=== PATIENT | female | born 1930 | race Caucasian/White ===

== ENCOUNTER → 2017-10-20 | Outpatient (CLI) | payer OTHER ==
[~2017-10-20] MED LIST: ALDACTONE25 MG PO; COUMADIN 5 MG TA5 M1 PO; LANOXIN 0.120.125 M1 PO; LASIX 20 MG TAB20 MG PO; LEVOTHYROXINE50 MCG PO; LIPITOR 20 MG T20 M1 PO; METOPROLOL SUC100 MG PO; NIFEREX PO; POTASSIUM20 PO; TOPROL XL50 MG PO; TRACLEER125 MG PO; VITAMIN D2000 UNI1 PO
== END ==
LOC: RAD 09:11
DX: I51.7 Cardiomegaly (principal); R09.89 Other specified symptoms and signs involving the circulatory and respiratory systems; K57.31 Diverticulosis of large intestine without perforation or abscess with bleeding; I50.32 Chronic diastolic (congestive) heart failure; I12.9 Hypertensive chronic kidney disease with stage 1 through stage 4 chronic kidney disease, or unspecified chronic kidney disease; N18.3 Chronic kidney disease, stage 3 (moderate); I48.91 Unspecified atrial fibrillation; I27.89 Other specified pulmonary heart diseases; E78.5 Hyperlipidemia, unspecified; E03.9 Hypothyroidism, unspecified; I25.10 Atherosclerotic heart disease of native coronary artery without angina pectoris

== ENCOUNTER → 2017-11-08 | Outpatient (CLI) | payer OTHER | LOC: RAD 09:23 | DX: I50.9 Heart failure, unspecified (principal); I51.7 Cardiomegaly; J81.1 Chronic pulmonary edema ==

== ENCOUNTER 2019-03-29 12:50 | Inpatient (IN) | payer OTHER ==
[~2019-03-29] VITALS: Ht 180.3 cm; Wt 78.9 kg
[2019-03-29 16:25] VITALS: BP 123/54
--- NOTE | 2019-03-29 16:35 | 2DMMODE ---
[facility] [address] [place] [address] 2 D/M-MODE ECHOCARDIOGRAM Name: DANN SQUIRES INDIGO Room #: 206-P ADM IN M.R.#: [id number] ������������� Admission: 03/29/19 ������������� Attend Phys: Marilyn Joiner Discharge: ��� ������������� ��� Date of : 34 Date of Service: 03/29/19 1635 �� Report #: [id number] �������� ��������������������������������������������[id number] THIS REPORT FOR: //name// APPROVED REPORT Study performed: 03/29/2019 15:44:28 EXAM: Comprehensive 2D, Doppler, and color-flow Echocardiogram Patient Location: Echo lab Room #: 206 Status: routine/late add-on BSA: 1.88 HR: 122 bpm Rhythm: Atrial Fibrillation Other Information Study Quality: Adequate Indications ASD, Pulmonary HTN. Hx: Afib, CAD. 2D Dimensions RVDd: 62.64 mm IVSd: 10.28 (7-11mm) LVOT Diam: 18.96 (18-24mm) LVDd: 41.11 mm PWd: 9.94 (7-11mm) Ascending Ao: 32.87 (22-36mm) LVDs: 29.71 (25-40mm) Aortic Root: 33.89 mm Volumes Left Atrial Volume (Systole) Single Plane 4CH: 69.50 mL Single Plane 2CH: 123.14 mL LA ESV Index: 51.00 mL/m2 Aortic Valve AoV Peak Case.: 1.24 m/s AO Peak Gr.: 6.16 mmHg LVOT Max P.18 mmHg LVOT Max V: 0.74 m/s SOLA Vmax: 1.68 cm2 Mitral Valve MV Decel. Time: 139.09 ms MV E Max Case.: 1.48 m/s [facility] [address] [place] [address] 2 D/M-MODE ECHOCARDIOGRAM Name: DANN SQUIRES [facility] Room #: 206-P [facility] IN .R.#: [id number] ������������� Admission: 03/29/19 ������������� Attend Phys: Marilyn Joiner Discharge: ��� ������������� ��� Date of : 34 Date of Service: 03/29/19 1635 �� Report #: [id number] �������� ��������������������������������������������[id number] Pulmonary Valve PV Peak Case.: 1.09 m/s PV Peak Gr.: 4.71 mmHg Tricuspid Valve TR Peak Case.: 3.62 m/s RAP Estimate: 15.00 mmHg TR Peak Gr.: 53.01 mmHg PA Pressure: 68.00 mmHg Left Ventricle The left ventricle is normal size. There is normal LV segmental wall motion. Flattened septum consistent with right ventricular volume and pressure overload. There is normal left ventricular wall thickness. Left ventricular systolic function is normal. LVEF is 55-60%. This study is not technically sufficient to allow evaluation of the LV diastolic function due to atrial fibrillation. Right Ventricle Right ventricle is severely dilated. Right ventricle is hypokinetic. Atria Left atrium is severely dilated. 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 Aortic Valve The aortic valve is mildly sclerotic. No aortic regurgitation is present. There is no aortic valvular stenosis. Mitral Valve Mild mitral annular calcification. Trace to mild mitral regurgitation. Tricuspid Valve The tricuspid valve is normal in structure. Severe tricuspid regurgitation. Estimated PAP is 65-70mmHg. Pulmonic Valve The pulmonary valve is normal in structure. Trace pulmonic regurgitation. Great Vessels The aortic root is normal in size. The ascending aorta is normal in size. IVC is dilated and collapses <50% with inspiration. Pericardium [facility] [address] [place] [address] 2 D/M-MODE ECHOCARDIOGRAM Name: DANN SQUIRES INDIGO Room #: 206-P ADM IN M.R.#: [id number] ������������� Admission: 03/29/19 ������������� Attend Phys: Marilyn Joiner Discharge: ��� ������������� ��� Date of : 34 Date of Service: 03/29/19 1635 �� Report #: [id number] �������� ��������������������������������������������[id number] Tracel pericardial fluid noted. <Conclusion> Left ventricular systolic function is normal. There is normal LV segmental wall motion. Flattened septum consistent with right ventricular volume and pressure overload. LVEF is 55-60%. Right ventricle is severely dilated and hypokinetic. Right atrium is massively dilated. Fenestrated ASD The aortic valve is mildly sclerotic. No aortic regurgitation or stenosis. Mild mitral annular calcification. Trace to mild mitral regurgitation. Severe tricuspid regurgitation. Estimated pulmonary artery pressure of 65-70mmHg. Trace pericardial effusion ��������������������������������������������� <ELECTRONICALLY SIGNED> ���������������������������������������� By: Bernardo Shannon MD, FACC ��������������������������������������������� 03/29/19 1635 [id number] Bernardo Shannon MD, FAC /INF
[2019-03-29 17:20] LABS: URINE BILIRUBIN NEGATIVE (Negative); URINE BLOOD NEGATIVE (Negative); URINE CLARITY CLEAR; URINE COLOR YELLOW; URINE GLUCOSE-RANDOM* NEGATIVE (Negative); URINE KETONES NEGATIVE (Negative); URINE LEUKOCYTES NEGATIVE (Negative); URINE NITRITE NEGATIVE (Negative); URINE PROTEIN (DIPSTICK) NEGATIVE (Negative); URINE SPECIFIC GRAVITY <= 1.005 (1.005-1.035); URINE UROBILINOGEN 0.2 E.U./dl (0.2-1.0)
[2019-03-29 17:45] LABS: HEMATOCRIT 33.8 % (37.0-47.0); MCH 30.5 pg (26.0-34.0); MCHC 32.6 g/dL (28.0-37.0); MCV 93.7 fL (80.0-100.0); RBC 3.6 mil/uL (4.20-5.00); RDW 15.7 % (10.5-14.5); WBC 7.7 thou/uL (4.0-11.0)
--- NOTE | 2019-03-29 17:53 | NUR ---
PT A DIRECT ADMIT. ADMISSION HX AND ASSESSMENT COMPLETED. ST ON TELE. VSS. DENIED HAVING PAIN OR DISCOMFORT. SEEN BY DR. GAMBOA AND DR. GRUBBS. ORDERS NOTED. DAUGHTERS AT THE BEDSIDE. WILL CONTINUE TO MONITOR.
[2019-03-29 17:55] LABS: % SATURATION 11 % (20-39); IRON 36 ug/dL (50-170); TIBC 319 ug/dL (250-450)
[2019-03-29 17:57] LABS: PROTIME 10.7 Seconds (9.3-11.4)
[2019-03-29 17:58] LABS: ALBUMIN 3.6 g/dL (3.4-5.0); BUN 38 mg/dL (7-18); CALCIUM 9.4 mg/dL (8.5-10.1); CHLORIDE 95 mmol/L (98-107); CREATININE 1.3 mg/dL (0.6-1.0); GLUCOSE 222 mg/dL (74-106); POTASSIUM 4.4 mmol/L (3.5-5.1); SGOT 34 U/L (15-37); SGPT 27 U/L (30-65); SODIUM 141 mmol/L (136-145); TOTAL BILIRUBIN 0.5 mg/dL (<0.1-1.0); TOTAL PROTEIN 6.8 g/dL (6.4-8.2)
[2019-03-29 18:00] LABS: CO2 > 45 mmol/L (21-32)
[2019-03-29 20:12] VITALS: BP 129/70
[2019-03-30 00:45] VITALS: BP 105/59
--- NOTE | 2019-03-30 03:53 | NUR ---
ASSESSMENT DOCUMENTED.PT BEEN RESTING IN NO ACUTE DISTRESS.A/OX3.PT WAS VERY SLEEPY AT THE BEGINNING OF THE SHIFT AND WAS UNABLE TO FOLLOWS COMMANDS. THE NIGHT PROGRESSES PT BEEN MORE AWAKE,ADMITTED OF BEING TIRED AND NEEDED TO SLEEP.PT A/OX4.FOLLOWS COMMANDS APPROPRIATELY.ADMITTED OF GETTING CONFUSED AT TIMES AT NOC AFTER SHE DISCONTINUED IV.REPOSITIONED IN BED.PERICARE GIVEN.AFIB ON THE MONITOR.VSS.POC IS TO ONTINUES TO DIURESE.WILL CONT TO MONITOR PER POC.
[2019-03-30 04:45] VITALS: BP 106/57
[2019-03-30 04:55] LABS: ALBUMIN 3.2 g/dL (3.4-5.0); BUN 34 mg/dL (7-18); CALCIUM 9.2 mg/dL (8.5-10.1); CHLORIDE 95 mmol/L (98-107); CREATININE 1.1 mg/dL (0.6-1.0); GLUCOSE 100 mg/dL (74-106); PHOSPHORUS 4.5 mg/dL (2.5-4.9); POTASSIUM 4.6 mmol/L (3.5-5.1); SODIUM 143 mmol/L (136-145)
[2019-03-30 04:57] LABS: CO2 > 45 mmol/L (21-32)
[2019-03-30 07:55] VITALS: BP 107/64
--- NOTE | 2019-03-30 09:17 | EKG ---
[address] [place] [address] ELECTROCARDIOGRAM REPORT Name: DANN SQUIRES Room #: 206-P ADM IN M.R.#: [id number] ������������������ Admission: 03/29/19 ������������������ Attend Phys: Marilyn Gallo Discharge: ������������������ Date of : 34 Report #: [id number] ����������������������������������������������������������������� [id number] THIS REPORT FOR: //name// [facility] Test Date: 2019-03-29 Test Time: 16:17:19 Pat Name: DANN SQUIRES Department: Room: 206 P Gender: F Equal Opportunity Counselor: JAYANT : 1930 Requested By: Opal Olivares Order Number: [id number] MD: Bernardo Shannon Measurements Intervals [place] Rate: 114 P: NC: QRS: 109 QRSD: 111 T: 45 QT: 332 QTc: 458 Interpretive Statements Atrial fibrillation RVH with secondary repolarization abnrm Compared to ECG 12/10/2014 09:13:49 N[address] change in the ST and T-wave segments Electronically Signed On 03-30-2019 9:17:25 CDT by Bernardo Shannon [email or web address] ��������������������������������������������� <ELECTRONICALLY SIGNED> ���������������������������������������� By: Bernardo Shannon MD, [facility] ��������������������������������������������� 03/30/19916 161 [id number] Bernardo Shannon MD, [facility] /EPI
--- NOTE | 2019-03-30 10:05 | NUR ---
Nutrition: pt admitted with pulmonary HTN, CHF. Seen d/t small pressure wound on coccyx. Wound care to evaluate. Great appetite is reported and stable weights other than fluid changes per dtr. On 2 diuretics with hx of CHF. Tries to limit sodium. Encouraged 100% intake of protein foods first. Low risk.
--- NOTE | 2019-03-30 10:27 | NUR ---
WOUND CARE CONSULT; COCCYX AND BUTTOCKS FRICTION SHEARING WOUNDS IDENTIFIED. IRREGULAR BOARDERS, NO S/S OF INFECTION AT THIS TIME. RECOMMENDATIONS; 1-A LOW AIR LOSS PUMP. 2-USE BARRIER CREAM DAILY/PRN DISCIUSSED WITH RN
[2019-03-30 11:45] VITALS: BP 114/67
--- NOTE | 2019-03-30 13:36 | NUR ---
Consult for hospice info and eval rec'd. Clerical Adviser visited with the pt and her dtr Samina at bedside. Samina is updating Makenzie via phone. Makenzie is the primary dpoa and she will be here this afternoon. Pt is a&ox3. She is aware of recommendation for hospice/24hr nursing care. She is a DNR. Hospice services and options discussed. The pt has been staying with her dtrs as she is no longer able to be in her home alone. She has severe pulmonary htn and is on 4liters of o2 normally. Her dtrs no longer feel they can manage her care needs at home and would like to see if the pt will qualify for inpt hospice at [facility] or [facility] unit at [facility]. They are open to private pay residental/terminal system operator care at either place as well if this is an option. They have not explored longterm placement in the past and are not sure what facilities they would want to consider if neither of the above options are available. Samina lives in [place] and the pt's home is there as well. Makenzie lives in [place]. Private duty at home discussed as well. They indicate that financial resources are not an issue. Referrals called and faxed to [facility]. hospice liason to eval at 3pm and [facility] at 4pm. They will each visit with the pt and family at that time. Will follow.
[2019-03-30 15:55] VITALS: BP 103/64; BP 1103/64
--- NOTE | 2019-03-30 18:05 | NUR ---
ASSESSMENT DOCUMENTED. PT ALERT AND ORIENTED. PLEASANT AND COOPERATIVE WITH CARES. SEEN BY DR. GRUBBS AND DR. GAMBOA. ORDERS GIVEN TO TRANSFER PT TO [facility]. REPORT CALLED IN TO THE NURSE. DAUGHTERS NOTIFIED.
--- NOTE | 2019-03-30 20:05 | NUR ---
PT DISCHARGE AT THIS TIME TO [facility].TRANSPORTED VIA [facility] VIA CART ACCOMPANIED BY HER DAUGHTER.ALL PAPER WORK GIVEN TO FILM DRYING MACHINE OPERATOR.NO CONCERNS VOICED AT THIS TIME.
== END 2019-03-30 20:07 | disposition hospice, inpatient (51) | DRG 292 ==
LOC: RAD 12:50 → 2N 14:15 → TBA 14:15 → 2N 03-30 20:07
PROVIDERS: Internal Medicine; Nurse Practitioner; ADMIT Hospitalist
DX: I11.0 Hypertensive heart disease with heart failure (principal); Q21.1 Atrial septal defect; I50.33 Acute on chronic diastolic (congestive) heart failure; E78.5 Hyperlipidemia, unspecified; E03.9 Hypothyroidism, unspecified; I27.20 Pulmonary hypertension, unspecified; Z60.2 Problems related to living alone; I25.10 Atherosclerotic heart disease of native coronary artery without angina pectoris; J44.9 Chronic obstructive pulmonary disease, unspecified; D64.9 Anemia, unspecified; I48.2 Chronic atrial fibrillation; Z66 Do not resuscitate; L89.892 Pressure ulcer of other site, stage 2; R29.6 Repeated falls; Z79.01 Long term (current) use of anticoagulants; Z82.49 Family history of ischemic heart disease and other diseases of the circulatory system; Z83.3 Family history of diabetes mellitus; Z99.81 Dependence on supplemental oxygen
CPT/HCPCS: 10081